=== PATIENT | female | born 1990 | race Caucasian/White ===

== ENCOUNTER 2017-08-10 05:14 | Inpatient (IN) | payer OTHER ==
[2017-08-10] MEDS ORDERED: ceFAZolin 2 GM PREMIX (*) 2 GM/50 ML BAG IVPB ONE (05:46)
[2017-08-10 06:16] LABS: ABS Basophils 0.1 10^3/ul (0-0.2); ABS Eosinophils 0 10^3/ul (0-0.6); ABS Lymphocytes 1.6 10^3/ul (1.0-4.8); ABS Monocytes 0.8 10^3/ul (0-0.8); ABS Neutrophils 11.1 10^3/ul (1.5-7.7); ABS Nucleated RBC 0 10^3/ul; Eosinophil % 0.3 % (0-6); Hematocrit 35 % (35-47); Hemoglobin 12.2 g/dl (12.0-16.0); Mean Corpuscular HGB Conc 35 g/dl (31-36); Mean Corpuscular Hemoglobin 32 pg (27-31); Mean Corpuscular Volume 91 fL (80-97); Mean Platelet Volume 9 um3 (7.4-10.4); Nucleated Red Blood Cells % 0; Platelet Count 203 10^3/ul (150-450); Red Blood Count 3.86 10^6/ul (4.0-5.4); Red Cell Distribution Width 14 % (10.5-15); White Blood Count 13.6 10^3/ul (3.5-10.8)
[2017-08-10 07:58] LABS: Urine Appearance Cloudy; Urine Blood 1+ (Negative); Urine Color Yellow; Urine Ketones Negative (Negative); Urine Protein Negative (Negative); Urine Urobilinogen Negative (Negative)
[2017-08-10] MEDS: Betamethasone INJ* 6 MG/ML 5 ML VIAL (30 MG) IM ONE (08:37)
[2017-08-10] MEDS ORDERED: OBEPIDURAL* 250 ML EPIDURAL ONE (11:01)
[2017-08-10] MEDS ORDERED: EPHEDrine (Pressors)* 50 MG/ML VIAL IV PUSH PRN (11:35)
[2017-08-10] MEDS ORDERED: Sodium Citrate/Citric Acid* 15 ML UDC PO PRN (11:35)
[2017-08-10] MEDS ORDERED: Famotidine TAB* 20 MG PO PRN (11:35)
[2017-08-10] MEDS ORDERED: Phenylephrine IV* 40 MCG/ML 10 ML SYRINGE IV PUSH PRN (11:35)
[2017-08-10] MEDS ORDERED: OBEPIDURAL* 250 ML EPIDURAL SCH (12:00)
[2017-08-10] MEDS: ceFAZolin 1 GM VIAL(*) 1 GM in D5W 50 ML BAG* 50 ML IVPB SCH ×2 (14:06→22:33)
[2017-08-10] MEDS ORDERED: Oxytocin in LR* 20 UNITS/1,000 ML BAG IVPB ONE (18:58)
[2017-08-10] MEDS ORDERED: Oxytocin in LR* 20 UNITS/1,000 ML BAG IVPB SCH (19:00)
[2017-08-11] MEDS ORDERED: Glycerin ADULT SUPP PR PRN (02:56)
[2017-08-11] MEDS ORDERED: Acetaminophen TAB* 325 MG PO PRN (02:56)
[2017-08-11] MEDS ORDERED: Dibucaine 1% 28.35 GM TUBE PR PRN (02:56)
[2017-08-11] MEDS ORDERED: Measles, Mumps,Rubella VACC* 0.5 ML/VIAL SUBCUT ONE (02:56)
[2017-08-11] MEDS ORDERED: Witch Hazel PAD* JAR TOPICAL PRN (02:56)
[2017-08-11] MEDS ORDERED: Oxytocin in LR* 20 UNITS/1,000 ML BAG IVPB SCH (02:58)
[2017-08-11] MEDS: Ibuprofen TAB* 600 MG PO PRN ×3 (03:59→16:37)
[2017-08-11] MEDS: Docusate CAP* 100 MG PO SCH ×3 (08:05→21:05)
[2017-08-11] MEDS: Betamethasone INJ* 6 MG/ML 5 ML VIAL (30 MG) IM ONE (08:07)
[2017-08-12] MEDS: Ibuprofen TAB* 600 MG PO PRN ×4 (00:28→20:34)
[2017-08-12 07:03] LABS: Hematocrit 32 % (35-47); Hemoglobin 11.3 g/dl (12.0-16.0); Mean Corpuscular HGB Conc 35 g/dl (31-36); Mean Corpuscular Hemoglobin 32 pg (27-31); Mean Corpuscular Volume 92 fL (80-97); Mean Platelet Volume 9 um3 (7.4-10.4); Platelet Count 187 10^3/ul (150-450); Red Blood Count 3.51 10^6/ul (4.0-5.4); Red Cell Distribution Width 14 % (10.5-15); White Blood Count 15.9 10^3/ul (3.5-10.8)
[2017-08-12] MEDS: Docusate CAP* 100 MG PO SCH ×3 (08:57→20:34)
[2017-08-12] MEDS ORDERED: Ferrous Gluconate TAB* 324 MG TAB PO SCH (09:00)
[2017-08-13] MEDS: Ibuprofen TAB* 600 MG PO PRN ×2 (06:09→12:13)
[2017-08-13 08:13] VITALS: BP 110/59
[2017-08-13] MEDS: Docusate CAP* 100 MG PO SCH ×2 (10:25→14:03)
[2017-08-13] MEDS ORDERED: Hydrocortisone 1% CREAM* 30 GM TUBE TOPICAL SCH (10:30)
== END 2017-08-13 17:00 | DRG 775 ==
LOC: MCHOBOUT 05:14 → MCHOB 05:42
PROVIDERS: ADMIT Midwife; ATTEND Midwife
PROC: 10E0XZZ Delivery of Products of Conception, External Approach (ICD-10-PCS; principal; 2017-08-11)
PROC: 0HQ9XZZ Repair Perineum Skin, External Approach (ICD-10-PCS; 2017-08-11)
DX: O42.013 Preterm premature rupture of membranes, onset of labor within 24 hours of rupture, third trimester (principal); O70.0 First degree perineal laceration during delivery; O99.824 Streptococcus B carrier state complicating childbirth; Z3A.34 34 weeks gestation of pregnancy; Z37.0 Single live birth
CPT/HCPCS: 36415; 76815; 80307; 81003; 81015; 85025; 85027; 86850; 86900; 86901; 87086; 90707; A9270-GY; J0690; J0702

== ENCOUNTER 2021-01-29 06:05 | Inpatient (IN) ==
[2021-01-29] MEDS ORDERED: ceFOXitin 2 GM PREMIX 50 ML IVPB ONE (06:30)
[2021-01-29] MEDS ORDERED: Lactated Ringers 1000 ml BAG 500 ML IV ONE (07:00)
[2021-01-29] MEDS ORDERED: LACTATED RINGERS 1000 ML BAG IV SCH (07:00)
[2021-01-29] MEDS ORDERED: Oxytocin 10 UNITS/ML 1 ML VIAL ONE (07:04)
[2021-01-29] MEDS ORDERED: Morphine PF AMP (0.5MG/ML) 5 MG/10 ML AMP ONE (07:04)
[2021-01-29] MEDS ORDERED: Ondansetron 4 mg VIAL 2 MG/ML 2 ml VIAL ONE (07:04)
[2021-01-29] MEDS ORDERED: Phenylephrine 40 mcg/mL 10mL (400mcg) SYRINGE ONE ×2 (07:04→08:25)
[2021-01-29] MEDS ORDERED: Naloxone 0.4 mg VIAL 0.4 mg/ml 1 ml VIAL IV PRN (08:14)
[2021-01-29] MEDS ORDERED: diPHENhydraMINE IV 50 MG/ML 1 ml VIAL (BENADRYL) IV PRN (08:14)
[2021-01-29] MEDS ORDERED: Ondansetron 4 mg VIAL 2 MG/ML 2 ml VIAL IV PRN (08:14)
[2021-01-29] MEDS ORDERED: Acetaminophen IV 1 GM/100ML 100 ML IV PRN (08:20)
[2021-01-29] MEDS ORDERED: Glycerin ADULT 2.4 gm SUPP PR PRN (09:08)
[2021-01-29] MEDS ORDERED: Witch Hazel PAD JAR TOPICAL PRN (09:08)
[2021-01-29] MEDS ORDERED: Dibucaine 1% OINT 28.35 GM TUBE PR PRN (09:08)
[2021-01-29 09:34] LABS: Urine Appearance Clear; Urine Bilirubin Negative (Negative); Urine Blood Negative (Negative); Urine Color Colorless; Urine Glucose Negative (Negative); Urine Ketones Negative (Negative); Urine Nitrite Negative (Negative); Urine Protein Negative (Negative); Urine Specific Gravity 1.002 (1.002-1.030); Urine Urobilinogen Negative (Negative)
[2021-01-29] MEDS ORDERED: Lactated Ringers 1000 ml BAG 1,000 ML IV SCH (10:00)
[2021-01-29] MEDS ORDERED: Oxytocin in LR 20 UNITS/1,000 ML BAG IVPB SCH (10:00)
[2021-01-29 13:33] LABS: Urine Benzodiazepine Screen None Detected (None Detect); Urine Cannabinoids Screen None Detected (None Detect); Urine Opiates Screen None Detected (None Detect)
[2021-01-30 06:02] LABS: ABS Eosinophils 0.1 10^3/ul (0-0.6); ABS Lymphocytes 1.3 10^3/ul (1.0-4.8); ABS Monocytes 0.6 10^3/ul (0-0.8); Hematocrit 32 % (35-47); Hemoglobin 10.8 g/dL (12.0-16.0); Lymphocyte % 9.9 %; Mean Corpuscular HGB Conc 34 g/dL (31-36); Mean Corpuscular Hemoglobin 32 pg (27-31); Mean Corpuscular Volume 94 fL (80-97); Mean Platelet Volume 8.6 fL (7.4-10.4); Platelet Count 173 10^3/uL (150-450); Red Blood Count 3.35 10^6 /uL (3.70-4.87); Red Cell Distribution Width 14 % (10-15); White Blood Count 13.1 10^3/uL (3.5-10.8)
[2021-01-31 08:13] VITALS: BP 121/68
== END 2021-01-31 14:10 | disposition home or self-care (01) | DRG 787 ==
LOC: MCHOB 06:05
PROVIDERS: ADMIT Obstetrics & Gynecology; ATTEND Obstetrics & Gynecology